=== PATIENT | female | born 1950 | race Caucasian/White ===

== ENCOUNTER 2016-10-15 18:07 | Emergency (ER) | payer MEDICARE, OTHER ==
--- NOTE | ~2016-10-15 | ER ---
PATIENT'S NAME: BETO SARMIENTO [facility] AGE: 66 Y [address] ROOM: [place] [id number] LOCATION: ED ADMIT DATE: 10/15/2016 ER/Outpatient Report DISCHARGE DATE: 10/15/2016 FAMILY PHYSICIAN: , Unknown ATTENDING PHYSICIAN: Rey Espinosa Time of Arrival: 1807 hours. Time of Evaluation: 1811 hours. CHIEF COMPLAINT: Dizziness and near syncope. HISTORY OF PRESENT ILLNESS: The patient is a 66-year-old female who presents to the emergency department today with chief complaint of dizziness and near syncope. She reports that she has had similar symptoms over the past few months, however, she had the worst episode today about 45 minutes prior to arrival. Denies any fevers or chills. No nausea or vomiting. No diarrhea or constipation. The patient just feels like she may pass out. She denies any chest pain. She reports she was sitting. She has had issues with her tongue over the past couple of months, feels like it is swelling. She has had MRI, colonoscopy, EGD, and multiple workups by her primary care doctor. PAST MEDICAL HISTORY: Atrial fibrillation, restless legs syndrome, hypothyroidism, ischemic heart disease with coronary artery disease, and headaches. PAST SURGICAL HISTORY: Tubal ligation and colonoscopy. SOCIAL HISTORY: The patient denies any tobacco, alcohol, or illicit drug use. ALLERGIES: TO REGLAN. MEDICATIONS: Unknown. PRIMARY CARE DOCTOR: Is at [facility]. REVIEW OF SYSTEMS: All systems are reviewed by myself and are negative with the exception of those discussed in HPI and past medical history. PATIENT'S NAME: BETO SARMIENTO [facility] AGE: 66 Y [address] ROOM: [place] [id number] LOCATION: ED ADMIT DATE: 10/15/2016 ER/Outpatient Report DISCHARGE DATE: 10/15/2016 FAMILY PHYSICIAN: Physician, Unknown ATTENDING PHYSICIAN: Rey Espinosa PHYSICAL EXAMINATION: VITAL SIGNS: Weight 50.9 kg. Blood pressure 196/86, pulse 76, respiratory rate 18, temperature 98.5, and oxygen saturation 100% on room air. GENERAL: The patient is a 66-year-old female who appears stated age, in no acute distress at this time. HEENT: Head: Normocephalic, atraumatic. Pupils are equal, round, and reactive to light. Extraocular motions are intact. Nares are patent bilaterally. TMs are clear. Oropharynx is clear. NECK: Supple. There is no nuchal rigidity. CARDIOVASCULAR: Regular rate and rhythm. No murmurs, rubs, or gallops. LUNGS: Clear to auscultation bilaterally. No wheezes, rales, or rhonchi. ABDOMEN: Soft, nontender, and nondistended. No rebound, rigidity, or guarding. MUSCULOSKELETAL: The patient moves all 4 extremities. 5/5 muscle strength. SKIN: Warm and dry. No rashes or lesions noted. LABORATORY DATA AND X-RAYS: EKG is obtained and interpreted by myself at 1831 hours shows sinus rhythm with a rate of 65, normal axis, OK interval 225, but otherwise normal intervals. No ST elevation, ST depression, or T-wave inversion. CBC is normal. Two-view chest x-ray is negative. Coags are normal. CMP is unremarkable. Cardiac enzymes are normal. LFTs are normal. Magnesium is normal. Free T4 is 1.8. TSH is normal. ProBNP is 165, unremarkable. IMPRESSION: 1. Dizziness. 2. Initial visit. EMERGENCY DEPARTMENT COURSE: The patient brought back to the examination room. Seen and evaluated by myself. IV is established. Laboratory analysis and imaging are obtained as described above. Orthostatic vital signs are performed and they are negative. The patient is given a liter of normal saline IV. She is re-evaluated. The patient reports she feels much improved at this time. We did ambulate the patient throughout the emergency department, she does report she feels a little bit funny, but feels much better than she did. The patient is requesting to go home at this time. I have discussed the return to care instructions including chest pain, shortness of breath, inability to walk, or any other concerns to return to the emergency department as soon as possible. The patient is agreeable without further questions at this time. DISPOSITION: The patient is discharged home in good condition. PATIENT'S NAME: BETO SARMIENTO [facility] AGE: 66 Y [address] ROOM: [place] [id number] LOCATION: ED ADMIT DATE: 10/15/2016 ER/Outpatient Report DISCHARGE DATE: 10/15/2016 FAMILY PHYSICIAN: Physician, Janette ATTENDING PHYSICIAN: Rey Espinosa DO QUYNH ESTRELLA/richardl /[id number] d: 10/16/160 t: 10/18/16 1816, OUTPATIENT REPORT
[2016-10-15 18:47] LABS: BASOPHIL % 0.6 %; EOSINOPHIL # 0.1 K/uL (0.0-0.5); EOSINOPHIL % 2.1 %; HEMATOCRIT 36.1 % (33.0-46.0); HEMOGLOBIN 12.6 g/dL (10.0-15.0); IMMATURE GRANULOCYTE % 0.2 %; LYMPHOCYTE # 1.7 K/uL (0.8-4.0); LYMPHOCYTE % 26.7 %; MCH 29.2 pg (27.0-34.0); MCHC 34.9 gm/dL (32.0-36.5); MCV 83.8 fl (83.0-98.0); MONOCYTE # 0.5 K/uL (0.0-1.0); MONOCYTE % 8.2 %; MPV 9.7 fl (9.4-12.4); NEUTROPHIL # (ANC) 3.9 K/uL (1.8-7.8); NEUTROPHIL % 62.2 %; NRBC % 0 /100WBC (0-0.00); PLATELET COUNT 294 K/uL (150-450); RBC 4.31 M/uL (3.50-5.50); RDW-CV 12.2 % (11.9-14.6); WBC 6.2 K/uL (4.0-11.0)
[2016-10-15 18:56] LABS: INR - (THERAPEUTIC) 1.08 (0.92-1.07); PROTIME 11.4 SECONDS (9.8-11.4); PTT 30 SECONDS (25-32)
[2016-10-15 19:07] LABS: ALBUMIN 3.6 gm/dL (3.5-5.0); ALK PHOS 67 IU/L (33-138); ALT 11 IU/L (12-78); ANION GAP 12.4 (10.0-19.0); AST 17 IU/L (10-40); BLOOD UREA NITROGEN 12 mg/dL (6-24); CALCIUM 8.3 mg/dL (8.5-10.5); CHLORIDE 108 mMol/L (96-110); CO2 22 mMol/L (22-32); CPK 41 IU/L (21-215); MAGNESIUM 2.3 mg/dL (1.8-2.6); POTASSIUM 3.4 mMol/L (3.7-5.1); SODIUM 139 mMol/L (135-145); TOTAL BILIRUBIN 0.3 mg/dL (0.0-1.5); TOTAL PROTEIN 7.6 g/dL (6.0-8.4)
== END 2016-10-15 20:01 | disposition disaster alternative care site (69) ==
LOC: GMED 18:07
PROVIDERS: Emergency Medicine
DX: R42 Dizziness and giddiness (principal); I48.91 Unspecified atrial fibrillation; G25.81 Restless legs syndrome; E03.9 Hypothyroidism, unspecified; I25.10 Atherosclerotic heart disease of native coronary artery without angina pectoris; Z98.51 Tubal ligation status; Z88.8 Allergy status to other drugs, medicaments and biological substances
CPT/HCPCS: J7030